=== PATIENT | female | born 1970 | race Caucasian/White ===

== ENCOUNTER 2016-08-26 06:32 | Day surgery (SDC) | payer BC ==
--- NOTE | ~2016-08-26 | EGD ---
EGD REPORT [facility] [address] [place] [id number] NAME: BRIGHT JONES : [birth year] STATUS : REG [facility]#: [id number] AGE: 45 ADM/REG DATE : 08/26/16 MR#: [id number] REPORT SERV DATE: 08/26/16 DICTATED BY: KT GUTIERRES DATE: 08/26/16 REPORT STATUS : Draft [facility] DATE: 08/26/16 [facility] Patient Name: Bright Jones Date of : 1970 Attending MD: KT GUTIERRES, Procedure Date No Time: 08/26/2016 Procedure: Upper GI endoscopy Indications: Epigastric abdominal pain Referring MD: ROSANA HAHN Medicines: Monitored Anesthesia Care Complications: No immediate complications. Estimated blood loss: None. Procedure: Pre-Anesthesia Assessment: - ASA Grade Assessment: II - A patient with mild systemic disease. After obtaining informed consent, the endoscope was passed under direct vision. Throughout the procedure, the patient's blood pressure, pulse, and oxygen saturations were monitored continuously. The GIF [id number] was introduced through the mouth, and advanced to the second part of duodenum. The upper GI endoscopy was accomplished without difficulty. The patient tolerated the procedure well. Findings: The esophagus was normal. Diffuse mild inflammation characterized by granularity was found in the entire examined stomach. Biopsies were taken with a cold forceps for histology. Verification of patient identification for the specimen was done. Estimated blood loss was minimal. The cardia and gastric fundus were normal on retroflexion. The examined duodenum was normal. Multiple biopsies were obtained in the 2nd part of the duodenum with cold forceps for histology. Impression: - Normal esophagus. - Gastritis. Biopsied. - Normal examined duodenum. - Multiple biopsies were obtained in the 2nd part of the duodenum. Recommendation: - Patient has a contact number available for emergencies. The signs and symptoms of potential delayed complications were discussed with the patient. Return to normal activities tomorrow. Written discharge instructions were provided to the patient. - Return to previous diet. EGD REPORT [facility] [address] [place]. [address] NAME: BRIGHT JONES : [birth year] STATUS : REG [facility] PAT#: [id number] AGE: 45 ADM/REG DATE : 08/26/16 MR#: [id number] REPORT SERV DATE: 08/26/16 DICTATED BY: KT GUTIERRES DATE: 08/26/16 REPORT STATUS : Draft TRANSCRIBED BY: [employer] DATE: 08/26/16 - Continue present medications. - Await pathology results. Procedure Code(s): --- Professional --- 73128, Esophagogastroduodenoscopy, flexible, transoral; with biopsy, single or multiple Diagnosis Code(s): --- Professional --- K29.70, Gastritis, unspecified, without bleeding R10.13, Epigastric pain CPT copyright 2013 [employer]. All rights reserved. The codes documented in this report are preliminary and upon information coder review may be revised to meet current compliance requirements. KT GUTIERRES, 08/26/2016 8:43 AM Number of Addenda: 0 Note Initiated On: 08/26/2016 8:29 AM Scope Withdrawal Time 0 hours 0 minutes 0 seconds [address] [place] [address]
[~2016-08-26 06:32] MED LIST: AMB10 PO; ATV.5 PO; BENTYL10 PO; BENTYL20 PO; CARASPUDL PO; CELEXA20 PO; COCONUT OIL PO; FISH-EPA1000 MG PO; FLAG500TAB PO; HARD NAILS PO; LEVSINTAB SL; MULTIPLE VIT PO; NORCO1 TAB PO; P125 PO; PREV30 PO
[2016-12-17] MEDS ORDERED: ZANAFLEX2 MG PO (17:36)
[2016-12-17] MEDS ORDERED: TORATAB PO (22:18)
[2016-12-17] MEDS ORDERED: PR25 PO (22:19)
[2016-12-17] MEDS ORDERED: DIL4TAB PO (22:19)
== END 2016-08-26 23:59 | disposition home or self-care (01) ==
LOC: DMU 06:32
PROVIDERS: Internal Medicine Gastroenterology
PROC: 0DB68ZX Excision of Stomach, Via Natural or Artificial Opening Endoscopic, Diagnostic (ICD-10-PCS; 2016-08-26)
PROC: 0DB98ZX Excision of Duodenum, Via Natural or Artificial Opening Endoscopic, Diagnostic (ICD-10-PCS; principal; 2016-08-26 07:30)
DX: K29.70 Gastritis, unspecified, without bleeding (principal); R10.13 Epigastric pain; F17.210 Nicotine dependence, cigarettes, uncomplicated; K58.9 Irritable bowel syndrome, unspecified; K21.9 Gastro-esophageal reflux disease without esophagitis; Z79.899 Other long term (current) drug therapy; Z79.891 Long term (current) use of opiate analgesic; Z88.5 Allergy status to narcotic agent; Z88.8 Allergy status to other drugs, medicaments and biological substances
CPT/HCPCS: 88305